=== PATIENT | female | born 1945 | race Caucasian/White ===

== ENCOUNTER 2017-02-26 07:42 | Day surgery (SDC) | payer OTHER ==
[2017-02-26] MEDS ORDERED: VERSED ONE ×2 (08:10→10:17)
[2017-02-26] MEDS ORDERED: NS 500 ML IV 500 ML IV ONE ×2 (08:27→10:02)
[2017-02-26] MEDS ORDERED: TETRACAINE 0.5% OPHTH 1 DOSE AFFEYE ONE ×4 (08:30→11:20)
[2017-02-26] MEDS ORDERED: VIGAMOX 0.5% OPHTH 1 DOSE AFFEYE ONE ×5 (08:31→12:01)
[2017-02-26] MEDS ORDERED: PROLENSA OPHTH 1 DOSE AFFEYE ONE (08:42)
[2017-02-26] MEDS ORDERED: ALPHAGAN-P OPHTH 1 DOSE AFFEYE ONE (08:43)
[2017-02-26] MEDS ORDERED: MYDRIACIL OPHTH 1 DOSE AFFEYE ONE ×3 (08:44→08:46)
[2017-02-26] MEDS ORDERED: AK-DILATE 2.5% OPHTH 1 DOSE OP ONE ×3 (08:44→08:46)
[2017-02-26] MEDS ORDERED: CYCLOGYL 1% OPHTH 1 DOSE OP ONE ×3 (08:44→08:46)
[2017-02-26] MEDS ORDERED: VERSED IVP ONE (11:08)
[2017-02-26] MEDS ORDERED: ALCAINE or OPHTHETIC 1 DOSE AFFEYE ONE (11:08)
[2017-02-26] MEDS ORDERED: AK-DILATE 10% OPHTH 1 DOSE AFFEYE ONE (11:10)
[2017-02-26] MEDS ORDERED: BETADINE OPHTH SOLN 5% EACHEYE ONE (11:20)
[2017-02-26] MEDS ORDERED: XYLOCAINE-MPF 1% IJ ONE ×2 (11:21→11:46)
[2017-02-26] MEDS ORDERED: DUOVISC IO ONE ×2 (11:21→11:46)
[2017-02-26] MEDS ORDERED: ADRENALINE CHL INJ IJ ONE ×2 (11:21→11:46)
[2017-02-26] MEDS ORDERED: BSS OPHTH (PLAIN) 500 ML with VANCOMYCIN HCL 500 MG VIAL 25 MG, ADRENALINE CHL INJ 1 MG IR ONE ×6 (11:22)
[2017-02-26 12:31] VITALS: BP 116/62
== END 2017-02-26 12:26 | disposition home or self-care (01) ==
LOC: SURG1 07:42
PROVIDERS: ATTEND Ophthalmology
PROC: 08DK3ZZ Extraction of Left Lens, Percutaneous Approach (ICD-10-PCS; principal; 2017-02-26 11:15)
PROC: 08RK3JZ Replacement of Left Lens with Synthetic Substitute, Percutaneous Approach (ICD-10-PCS; principal; 2017-02-26 11:15)
DX: H25.12 Age-related nuclear cataract, left eye (principal); H25.012 Cortical age-related cataract, left eye; H52.222 Regular astigmatism, left eye
CPT/HCPCS: 99100; V2797; A4217; J0170; J2250; J3370

== ENCOUNTER 2017-05-07 07:04 | Day surgery (SDC) | payer OTHER ==
[2017-05-07] MEDS ORDERED: TETRACAINE 0.5% OPHTH 1 DOSE AFFEYE ONE ×6 (07:15→10:11)
[2017-05-07] MEDS ORDERED: VIGAMOX 0.5% OPHTH 1 DOSE AFFEYE ONE ×4 (07:16→10:24)
[2017-05-07] MEDS ORDERED: NS 500 ML IV 500 ML IV ONE (07:17)
[2017-05-07] MEDS ORDERED: PROLENSA OPHTH 1 DOSE AFFEYE ONE (07:27)
[2017-05-07] MEDS ORDERED: ALPHAGAN-P OPHTH 1 DOSE AFFEYE ONE (07:28)
[2017-05-07] MEDS ORDERED: CYCLOGYL 1% OPHTH 1 DOSE OP ONE ×5 (07:29→07:33)
[2017-05-07] MEDS ORDERED: AK-DILATE 2.5% OPHTH 1 DOSE OP ONE ×5 (07:29→07:33)
[2017-05-07] MEDS ORDERED: MYDRIACIL OPHTH 1 DOSE AFFEYE ONE ×5 (07:29→07:33)
[2017-05-07] MEDS ORDERED: VERSED ONE (08:58)
[2017-05-07] MEDS: VERSED ONE ×2 (09:40→09:51)
[2017-05-07] MEDS ORDERED: AK-DILATE 10% OPHTH 1 DOSE AFFEYE ONE (09:55)
[2017-05-07] MEDS ORDERED: BETADINE OPHTH SOLN 5% EACHEYE ONE (10:11)
[2017-05-07] MEDS ORDERED: ADRENALINE CHL INJ IJ ONE (10:23)
[2017-05-07] MEDS ORDERED: XYLOCAINE-MPF 1% IJ ONE (10:24)
[2017-05-07] MEDS ORDERED: DUOVISC IO ONE (10:24)
[2017-05-07] MEDS ORDERED: BSS OPHTH (PLAIN) 500 ML with VANCOMYCIN HCL 500 MG VIAL 25 MG, ADRENALINE CHL INJ 1 MG IR ONE ×3 (10:25)
[2017-05-07 10:58] VITALS: BP 141/74
[2017-05-07] MEDS ORDERED: DIPRIVAN VIAL ONE (15:58)
== END 2017-05-07 11:00 | disposition home or self-care (01) ==
LOC: SURG1 07:04
PROVIDERS: ATTEND Ophthalmology
PROC: 08RJ3JZ Replacement of Right Lens with Synthetic Substitute, Percutaneous Approach (ICD-10-PCS; principal; 2017-05-07 08:00)
PROC: 08DJ3ZZ Extraction of Right Lens, Percutaneous Approach (ICD-10-PCS; principal; 2017-05-07 08:00)
DX: H25.011 Cortical age-related cataract, right eye (principal); H52.221 Regular astigmatism, right eye
CPT/HCPCS: 99100; V2797; A4217; J0170; J2250; J3370; J3490